=== PATIENT | male | born 1985 ===

== ENCOUNTER 2021-07-21 10:02 | Emergency (ER) | payer BC ==
[2021-07-21] MEDS ORDERED: HALOPERIDOL 5 MG TAB PO ONE (10:29)
--- NOTE | 2021-07-21 10:34 | Emergency Department Report ---
ED General Adult HPI - General Chief complaint: Psych Stated complaint: EVALUATION Time Seen by Provider: 07/21/21 10:22 Source: patient, EMS Mode of arrival: Stretcher Limitations: No Limitations - History of Present Illness Initial comments: Patient was brought in by EMS secondary to an outburst of anger. He has a history of anger management issues. Patient is supposed to take Benadryl and Resporal. He admits that he has not been taking those. Today, he got upset. He got angry. He was flipping tables over. He was not suicidal or homicidal. He was not delusional. Is not hearing voices telling him to do anything. He states that he just could not control his anger. He feels better now that he is at the hospital. He is willing to take his medication. He is willing to talk to a counselor. He does not feel as though he needs to be admitted to the hospital. He states that he just wants to be normal. - Related Data Allergies Allergy/AdvReac Type Severity Reaction Status Date / Time No Known Allergies Allergy Unverified 07/21/21 10:18 ED Review of Systems ROS: Stated complaint: EVALUATION Other details as noted in HPI Comment: All other systems reviewed and negative Constitutional: denies: fever Eyes: denies: vision change ENT: denies: throat pain Respiratory: denies: cough Cardiovascular: denies: chest pain Endocrine: denies: unexplained weight loss Gastrointestinal: denies: abdominal pain Genitourinary: denies: dysuria Musculoskeletal: denies: back pain Skin: denies: rash Neurological: denies: headache Psychiatric: denies: auditory hallucinations, visual hallucinations, homicidal thoughts, suicidal thoughts Hematological/Lymphatic: denies: easy bruising ED Past Medical Hx - Past Medical History Previous Medical History?: Yes Hx Psychiatric Treatment: Yes - Family History Family history: no significant - Social History Substance Use Type: Other (Denies cocaine and methamphetamine use) ED Physical Exam - General Limitations: No Limitations, Other (Pulse ox was noted and normal.) General appearance: alert, in no apparent distress - Head Head exam: Present: atraumatic, normocephalic, normal inspection - Eye Eye exam: Present: normal appearance, EOMI. Absent: scleral icterus - ENT ENT exam: Present: normal exam, normal orophraynx - Neck Neck exam: Absent: tenderness, meningismus - Respiratory Respiratory exam: Present: normal lung sounds bilaterally. Absent: respiratory distress - Cardiovascular Cardiovascular Exam: Present: regular rate, normal rhythm - GI/Abdominal GI/Abdominal exam: Present: soft. Absent: distended - Extremities Exam Extremities exam: Present: full ROM, normal capillary refill - Back Exam Back exam: Absent: CVA tenderness (R), CVA tenderness (L) - Neurological Exam Neurological exam: Present: alert, oriented X3, CN II-XII intact, normal gait. Absent: motor sensory deficit - Psychiatric Psychiatric exam: Present: flat affect. Absent: homicidal ideation, suicidal ideation - Skin Skin exam: Present: warm, dry ED Course Vital Signs 07/21/21 10:27 Temperature 99 F Pulse Rate 66 Respiratory 16 Rate Blood Pressure 112/71 [Right] O2 Sat by Pulse 100 Oximetry - Reevaluation(s) Reevaluation #2: 07/21/21 10:32 Patient was seen as above. Is not suicidal homicidal. He is not delusional. I do not believe this is a psychiatric issue. Oral Haldol was administered. ED Medical Decision Making - Medical Decision Making Patient presents as a psychiatric complaint. This really is not a psychiatric issue. This is behavior management. He is not suicidal homicidal. He is not delusional. There is no evidence of elucidation. He is not schizophrenic. Patient was given oral Haldol here. He is willing to take his medications and see a counselor. He was given outpatient resources and discharge. He is comfortable with the current plan. Again, he is not suicidal homicidal. There is no medical indication for psychiatric admission. Critical Care Time: No Critical care attestation.: If time is entered above; I have spent that time in minutes in the direct care of this critically ill patient, excluding procedure time. ED Disposition Clinical Impression: Outbursts of anger Disposition: 01 HOME / SELF CARE / HOMELESS Is pt being admited?: No Condition: Stable Additional Instructions: Take your medication. Follow-up with your doctor. Follow-up with a therapist. Drink plenty of water. Return for problems. Referrals: PRIMARY MD EDSON [Referring] - 3-5 Days ALIN SERRANO MD [Staff Physician] - 3-5 Days
[2021-07-21 10:44] VITALS: BP 120/56
[2021-07-21 12:28] LABS: Hematocrit 45.6 % (35.5-45.6); Hemoglobin 15.4 gm/dl (11.8-15.2); Mean Corpuscular HGB Conc 34 % (32-34); Mean Corpuscular Volume 87 fl (84-94); Platelet Count 206 K/mm3 (140-440); Red Blood Count 5.23 M/mm3 (3.65-5.03); Red Cell Distribution Width 14.3 % (13.2-15.2)
[2021-07-21 12:49] LABS: Alanine Aminotransferase 68 units/L (7-56); Albumin 4.9 g/dL (3.9-5); BUN/Creatinine Ratio 16; Blood Urea Nitrogen 16 mg/dL (9-20); Calcium 10.1 mg/dL (8.4-10.2); Hemolysis Index 32
[2021-07-21 12:57] LABS: Amphetamine Screen,Urine Negative; Benzodiazepines Screen,Urine Negative; Cocaine Screen,Urine Negative; Methadone Screen,Urine Negative; Opiate Screen,Urine Negative
[2021-07-21 13:08] LABS: Cannabinoid Screen,Urine Positive
[2021-07-21] MEDS ORDERED: HALOPERIDOL LACTATE 5 MG/1 ML INJ IM ONE (13:20)
== END 2021-07-21 18:32 | disposition home or self-care (01) ==
LOC: ED 10:02
DX: R45.4 Irritability and anger (principal); Z79.899 Other long term (current) drug therapy
CPT/HCPCS: 36415; 80053; 80307; 85027; 96372; 99284; J1630; 80320; G0480